=== PATIENT | female | born 1960 | race Caucasian/White ===

== ENCOUNTER 2017-11-23 09:43 | Emergency (ER) | payer MEDICAID ==
[~2017-11-23] VITALS: Ht 160 cm; Wt 73.9 kg
[~2017-11-23 09:43] MED LIST: IBUP-974 PO; TRAM50TA1 PO
[2017-11-23 10:15] VITALS: BP 106/73
--- NOTE | 2017-11-23 10:23 | NUR ---
PATIENT TO [facility] AT THIS TIME.
[2017-11-23 10:37] VITALS: BP 106/73
--- NOTE | 2017-11-23 10:38 | NUR ---
Generalized body ache with flu like symptoms for 3 days. Also reports chronic rt hip pain for many years, surgery in future. Denies fevers/coughs. resp even and unlabored, in nad. DENIES N/V/D; SKIN IS PINK/WARM/DRY; AAOX4 WITH EVEN AND STEADY GAIT; LUNGS CLEAR BL; HR EVEN AND REGULAR; PT DENIES ANY FEVER, CP, SOB, OR COUGH AT THIS TIME; PATIENT STATES PAIN OF 10/10 AT THIS TIME; VSS; ER MD MADE AWARE OF PT STATUS.
== END 2017-11-23 11:46 | disposition left against medical advice (07) ==
LOC: MED 09:43
DX: Z00.00 Encounter for general adult medical examination without abnormal findings (principal); M79.1 Myalgia; Z79.899 Other long term (current) drug therapy
CPT/HCPCS: 99281

== ENCOUNTER 2019-02-17 23:15 | Emergency (ER) | payer MEDICAID ==
[~2019-02-17] VITALS: Ht 160 cm; Wt 74.8 kg
[2019-02-17 23:24] VITALS: BP 149/90
--- NOTE | 2019-02-17 23:24 | NUR ---
Pt taken to bed 5.
--- NOTE | 2019-02-18 00:06 | NUR ---
DR. RAMÍREZ BEDSIDE EVALUATING PT
[2019-02-18] MEDS ORDERED: ONDANSETRON 4 MG ODT PO ONE (00:15)
[2019-02-18] MEDS ORDERED: MORPHINE SULFATE 4 MG/ML SYR IM ONE (00:15)
[2019-02-18 00:48] VITALS: BP 149/90
--- NOTE | 2019-02-18 00:48 | NUR ---
Patient discharged with v/s stable. Written and verbal after care instructions given and explained. Patient alert, oriented and verbalized understanding of instructions. Ambulatory with steady gait. All questions addressed prior to discharge. ID band removed. Patient advised to follow up with PMD. Rx of PREDNISONE, ZOFRAN, NORCO given. Patient educated on indication of medication including possible reaction and side effects. Opportunity to ask questions provided and answered.
== END 2019-02-18 00:48 | disposition home or self-care (01) ==
LOC: MED 23:15
DX: M25.551 Pain in right hip (principal); R05 Cough; R53.83 Other fatigue; R42 Dizziness and giddiness; Z79.899 Other long term (current) drug therapy
CPT/HCPCS: 96372; 99283; J2270; Q0162

== ENCOUNTER 2019-03-10 14:52 | Emergency (ER) | payer MEDICAID ==
[~2019-03-10] VITALS: Ht 160 cm; Wt 77.1 kg
[2019-03-10 15:02] VITALS: BP 146/83
--- NOTE | 2019-03-10 15:52 | NUR ---
C/O HEARTBURN X2 MONTHS. PT REPORTS TAKING ANTACIDS WITH NO RELIEF. PT STATES SHE IS NOW FEELING BLOATED/CONSTIPATED. LBM 03/09/19, PER PT IT WAS "VERY SMALL". BED IN LOW POSITION, SIDE RAIL UP X1, DAUGHTER AT BEDSIDE
[2019-03-10] MEDS ORDERED: DICYCLOMINE HCL LIQUID 20 MG, ALUMINUM HYD/MAG/SIMETHICONE 30 ML, LIDOCAINE VISCOUS 2% ... PO ONE ×3 (15:55)
--- NOTE | 2019-03-10 16:19 | NUR ---
PT RESTING IN BED, NO NEW NEEDS AT THIS TIME. DAUGHTER AT BEDSIDE
[2019-03-10 17:43] VITALS: BP 140/80
--- NOTE | 2019-03-10 17:43 | NUR ---
Patient discharged with v/s stable. Written and verbal after care instructions given and explained. Patient alert, oriented and verbalized understanding of instructions. Ambulatory with steady gait. All questions addressed prior to discharge. ID band removed. Patient advised to follow up with PMD. Rx of miralax, mag citrate, prilosec, diclofenac given. Patient educated on indication of medication including possible reaction and side effects. Opportunity to ask questions provided and answered.
== END 2019-03-10 17:28 | disposition home or self-care (01) ==
LOC: MED 14:52
DX: K21.9 Gastro-esophageal reflux disease without esophagitis (principal); K59.00 Constipation, unspecified; Z79.899 Other long term (current) drug therapy; Z98.890 Other specified postprocedural states
CPT/HCPCS: 99283

== ENCOUNTER 2019-05-29 07:59 | Emergency (ER) | payer MEDICAID ==
[~2019-05-29] VITALS: Ht 160 cm; Wt 73.7 kg
[2019-05-29 08:02] VITALS: BP 139/99
[2019-05-29 09:05] VITALS: BP 139/99
== END 2019-05-29 09:06 | disposition home or self-care (01) ==
LOC: MED 07:59
DX: B02.9 Zoster without complications (principal); F12.90 Cannabis use, unspecified, uncomplicated; Z79.899 Other long term (current) drug therapy; Z98.890 Other specified postprocedural states
CPT/HCPCS: 99283

== ENCOUNTER 2019-06-10 16:09 | Emergency (ER) | payer MEDICAID ==
[~2019-06-10] VITALS: Ht 157.5 cm; Wt 74.4 kg
[2019-06-10 16:16] VITALS: BP 92/56
--- NOTE | 2019-06-10 16:28 | NUR ---
SEEN IN OUR ER 05/29/2019 DX SHINGLES PT CONCERNED SHINGLES MAY NOT BE HEALING---SCABS APPEARING BEHING RIGHT LEG AND RIGHT LATERAL FOOT. INTACT BLISTERS ON RIGHT LATERAL FOOT PRESENT WELL. NO DRAINAGE NOTED FROM SCABBED AREAS. DENIES FEVER, CHILLS, N/V. STATES 10/10 BURNING PAIN. PITTING EDEMA TO BLE NOTED HX---SHINGLES, CHRONIC R HIP PAIN, VERICOSE VEIN, RX----?? WAS GIVEN ZOVIRAX BUT PT HAS BEEN NON COMPLIANT
--- NOTE | 2019-06-10 17:13 | NUR ---
DR. CORLEY EVALUATING PATIENT AT BEDSIDE.
--- NOTE | 2019-06-10 17:32 | NUR ---
DR. CORLEY AT BEDSIDE WITH PATIENT.
[2019-06-10 17:56] VITALS: BP 102/55
--- NOTE | 2019-06-10 17:56 | NUR ---
Patient discharged with v/s stable. Written and verbal after care instructions given and explained. Patient alert, oriented and verbalized understanding of instructions. Ambulatory with steady gait. All questions addressed prior to discharge. ID band removed. Patient advised to follow up with PMD. Rx of KEFLEX, LIDODERM PATCH given. Patient educated on indication of medication including possible reaction and side effects. Opportunity to ask questions provided and answered.
== END 2019-06-10 17:56 | disposition home or self-care (01) ==
LOC: MED 16:09
DX: B02.9 Zoster without complications (principal); L03.115 Cellulitis of right lower limb; L03.317 Cellulitis of buttock; Z79.1 Long term (current) use of non-steroidal anti-inflammatories (NSAID); Z79.891 Long term (current) use of opiate analgesic
CPT/HCPCS: 99283

== ENCOUNTER 2019-06-15 08:06 | Emergency (ER) | payer MEDICAID ==
[~2019-06-15] VITALS: Ht 160 cm; Wt 75.7 kg
[2019-06-15 08:18] VITALS: BP 147/94
[2019-06-15 10:35] VITALS: BP 141/89
== END 2019-06-15 10:35 | disposition home or self-care (01) ==
LOC: MED 08:06
DX: M79.89 Other specified soft tissue disorders (principal); Z79.899 Other long term (current) drug therapy
CPT/HCPCS: 93971; 99284; Q0092

== ENCOUNTER 2019-06-20 11:00 | Emergency (ER) | payer MEDICAID ==
[~2019-06-20] VITALS: Ht 160 cm; Wt 71.2 kg
[2019-06-20 11:11] VITALS: BP 141/69
[2019-06-20 11:56] VITALS: BP 141/69
== END 2019-06-20 11:57 | disposition home or self-care (01) ==
LOC: MED 11:00
DX: B02.9 Zoster without complications (principal); M16.11 Unilateral primary osteoarthritis, right hip; Z79.1 Long term (current) use of non-steroidal anti-inflammatories (NSAID); Z79.899 Other long term (current) drug therapy
CPT/HCPCS: 99281

== ENCOUNTER 2021-01-22 17:33 | Emergency (ER) | payer MEDICAID ==
[~2021-01-22] VITALS: Ht 160 cm; Wt 81.6 kg
[2021-01-22 17:44] VITALS: BP 178/92
--- NOTE | 2021-01-22 19:21 | NUR ---
PT W/C ASSISTED TO BED7.
[2021-01-22 19:27] VITALS: BP 178/92
--- NOTE | 2021-01-22 19:32 | NUR ---
60 Y/O MALE CAME TO THE ED C/O EDEMA AND PAIN IN BILATERAL LOWER LEGS. PT STATES THAT HER FOOT AND CALVES "FEELS SWOLLEN, SORE, TIGHT AND COULDN'T FEEL BOTH LEGS". FOOT AND CALF PAIN OF 8/10. PT IS A&OX4, GCS 15. PT IS NOT ABLE TO AMBULATE WITHOUT HELP OF ASSISTIVE DEVICE. PMH: HTN SURGICAL HX: HIP REPLACEMENT NKA
[2021-01-22] MEDS ORDERED: FUROSEMIDE 40 MG TAB PO ONE (20:20)
--- NOTE | 2021-01-22 20:25 | NUR ---
PT SIGNED AND ACKNOWLEDGED AMA FORM. ERMD AT BEDSIDE EXPLAINING RISKS AND CONSEQUENCES TO PT
--- NOTE | 2021-01-22 20:27 | NUR ---
Patient does not wish to proceed with medical care recommended by DR. MARTIN. Patient given information related to possible complications, up to and including , which could occur as a result of leaving hospital at this time. Patient verbalizes understanding of risks involved leaving against medical advice. Patient has signed AMA form.
[2021-01-23] MEDS ORDERED: POTA20TE92 PO (18:19)
[2021-01-23] MEDS ORDERED: FURO-572 PO (18:19)
[2021-01-23] MEDS ORDERED: ACET-2619 PO (18:23)
== END 2021-01-22 20:27 | disposition left against medical advice (07) ==
LOC: MED 17:33
DX: R60.0 Localized edema (principal); I10 Essential (primary) hypertension; E66.9 Obesity, unspecified; F12.90 Cannabis use, unspecified, uncomplicated; Z68.31 Body mass index [BMI] 31.0-31.9, adult; Z79.899 Other long term (current) drug therapy; Z98.890 Other specified postprocedural states
CPT/HCPCS: 99285

== ENCOUNTER 2021-01-23 14:35 | Emergency (ER) | payer MEDICAID ==
[~2021-01-23] VITALS: Ht 160 cm; Wt 81.6 kg
[2021-01-23 14:53] VITALS: BP 176/90
--- NOTE | 2021-01-23 14:59 | NUR ---
PATIENT AMBULATED TO BED 12
--- NOTE | 2021-01-23 15:10 | NUR ---
60 Y/O FEMALE BIB SELF C/O BILATERAL LEG PAIN & SWELLING X 2 WEEKS. PT HAD RIGHT HIP REPLACEMENT 01/17/21 AND SINCE THEN, PAIN AND SWELLING HAS INCREASED. PT CAME HERE LAST NIGHT AND LEFT AMA BECAUSE SHE DIDNT WANT ALL THE TESTS BUT STATES THAT NOW SHE WANTS THEM. PT RATES PAIN /10 AND DESCRIBES IT PRESSURE/TIGHTNESS. PT AMBULATES WITH WALKER AND STATES PAIN IS WORSE WITH AMBULATION. BILATERAL LEGS HAVE +4 PITTING EDEMA, FULL ROM, WARM TO TOUCH WITH CAP REFILL <3 SECONDS. PT STATES SHE CALLED HER SURGEON AND IS UNABLE TO GET APPT UNTIL 01/29. PT A/O X4 WITH EVEN AND UNLABORED RESPIRATIONS. PT IN BED WITH BED IN LOWEST POSITION, BRAKES LOCKED, X1 SIDERAIL UP. PMH: HTN, VARICOSE VEIN NKA
--- NOTE | 2021-01-23 15:21 | NUR ---
PT RIGHT FOOT ELEVATED WITH PILLOWS PER DR SAID REQUEST
[2021-01-23] MEDS ORDERED: ACETAMINOPHEN EXTRA STRENGTH 500 MG TAB PO ONE (16:25)
--- NOTE | 2021-01-23 16:34 | NUR ---
LAB AT BEDSIDE
--- NOTE | 2021-01-23 16:38 | NUR ---
US AT BEDSIDE
[2021-01-23 16:53] LABS: BASOPHILS % (AUTO) 0.6 % (0.0-2.0); EOSINOPHILS # (AUTO) 0.3 K/uL (0-0.4); EOSINOPHILS % (AUTO) 5.5 % (0.0-4.0); HEMATOCRIT 33.2 % (36-48); HEMOGLOBIN 11.2 g/dL (12.0-16.0); LYMPHOCYTES # (AUTO) 1.1 K/uL (2.5-16.5); LYMPHOCYTES % (AUTO) 22.3 % (20.5-51.1); MEAN CORPUSCULAR HEMOGLOBIN 30 pg (27-31); MEAN CORPUSCULAR HGB CONC 34 g/dL (33-37); MEAN CORPUSCULAR VOLUME 87.2 fL (80-94); MONOCYTES # (AUTO) 0.4 K/uL (0.8-1.0); MONOCYTES % (AUTO) 7.8 % (1.7-9.3); NEUTROPHILS # (AUTO) 3.2 K/uL (1.8-7.7); NEUTROPHILS % (AUTO) 63.8 % (42.2-75.2); PLATELET COUNT (AUTO) 262 K/uL (140-450); RED CELL DISTRIBUTION WIDTH 13.1 % (11.6-13.7)
[2021-01-23 17:07] LABS: PROTHROMBIN TIME 9.9 secs (10.8-13.4)
[2021-01-23 17:11] LABS: ANION GAP 10.2 (8-16); CARBON DIOXIDE 27.6 mmol/L (21-32); CREATININE 0.7 mg/dL (0.6-1.3); TOTAL BILIRUBIN 0.5 mg/dL (0.0-1.0)
--- NOTE | 2021-01-23 17:13 | NUR ---
PT ASSISTED TO RESTROOM WITH USE OF WALKER.
--- NOTE | 2021-01-23 17:19 | NUR ---
PT ASSISTED BACK INTO BED. PT R LEG ELEVATED WITH PILLOWS.
[2021-01-23 17:21] LABS: POTASSIUM 2.8 mmol/L (3.5-5.1)
--- NOTE | 2021-01-23 17:22 | NUR ---
CRITICAL LAB VALUE: POTASSIUM 2.8. DR MURRELL MADE AWARE
[2021-01-23] MEDS ORDERED: POTASSIUM CHLORIDE 10 MEQ TABER PO ONE ×2 (17:35)
[2021-01-23] MEDS ORDERED: POTA20TE92 PO (18:19)
[2021-01-23] MEDS ORDERED: FURO-572 PO (18:19)
[2021-01-23] MEDS ORDERED: ACET-2619 PO (18:23)
--- NOTE | 2021-01-23 18:37 | NUR ---
Patient discharged with v/s stable. Written and verbal after care instructions given and explained. Patient alert, oriented and verbalized understanding of instructions. Ambulatory with steady gait WITH WALKER. All questions addressed prior to discharge. ID band removed. Patient advised to follow up with PMD. Rx of ACETAMINOPHEN, FUROSEMIDE AND POTASSIUM CHLORIDE given. Patient educated on indication of medication including possible reaction and side effects. Opportunity to ask questions provided and answered.
[2021-01-23 18:41] VITALS: BP 176/90
== END 2021-01-23 18:37 | disposition home or self-care (01) ==
LOC: MED 14:35
DX: R60.0 Localized edema (principal); E87.6 Hypokalemia; E11.9 Type 2 diabetes mellitus without complications
CPT/HCPCS: 36415; 80053; 83880; 85025; 85610; 85730; 93970; 99284

== ENCOUNTER 2021-08-27 10:30 | Emergency (ER) | payer MEDICAID ==
[~2021-08-27] VITALS: Ht 160 cm; Wt 80.3 kg
[~2021-08-27 10:30] MED LIST changes: +ACET-2619 PO; +FURO-572 PO; +POTA20TA49 PO
[2021-08-27 10:40] VITALS: BP 151/90
--- NOTE | 2021-08-27 11:08 | NUR ---
REPORT RECEIVED FROM [facility] FOR TRANSFER OF CARE
[2021-08-27] MEDS ORDERED: cephALEXin 500 MG CAP PO ONE (11:15)
[2021-08-27] MEDS ORDERED: SULFAMETH/TRIMETH DS 800/160MG 1 TAB PO ONE (11:15)
[2021-08-27] MEDS ORDERED: ACET-9527 PO (11:40)
[2021-08-27] MEDS ORDERED: SIME180C9 PO (11:40)
[2021-08-27] MEDS ORDERED: CEPH500C16 PO (11:40)
[2021-08-27] MEDS ORDERED: SULF-59 PO (11:40)
--- NOTE | 2021-08-27 11:44 | NUR ---
61yo f c/o abscess and pain on left lower leg x last night. pt reports abscess, redness and "breaking open" of skin where shingles blisters have erupted and healed 8months ago. took motrin 800mg last night. redness and edema noted on L calf region. Pt stated pain is currently 5/10 and burning like pain. pmh: htn, chronic hip pain meds: unrecalled med for htn, motrin 800mg nkda
[2021-08-27 11:51] VITALS: BP 151/90
--- NOTE | 2021-08-27 11:52 | NUR ---
Patient discharged with v/s stable. Written and verbal after care instructions given and explained. Patient alert, oriented and verbalized understanding of instructions. Ambulatory with steady gait. All questions addressed prior to discharge. ID band removed. Patient advised to follow up with PMD. Rx of NORCO, KEFLEX, SIMETHICONE, AND BACTRIM given. Patient educated on indication of medication including possible reaction and side effects. Opportunity to ask questions provided and answered.
== END 2021-08-27 11:52 | disposition home or self-care (01) ==
LOC: MED 10:30
DX: L03.116 Cellulitis of left lower limb (principal); M25.559 Pain in unspecified hip; G89.29 Other chronic pain; Z79.899 Other long term (current) drug therapy; Z79.891 Long term (current) use of opiate analgesic; Z79.2 Long term (current) use of antibiotics; Z79.1 Long term (current) use of non-steroidal anti-inflammatories (NSAID)
CPT/HCPCS: 99283

== ENCOUNTER 2023-05-27 16:54 | Emergency (ER) | payer MEDICAID ==
[~2023-05-27] VITALS: Ht 160 cm; Wt 72.6 kg
[~2023-05-27 16:54] MED LIST changes: +ACET-9527 PO; +CEPH500C16 PO; +SIME180C9 PO; +SULF-59 PO; -TRAM50TA1 PO
[2023-05-27 17:22] VITALS: BP 147/105; PULSE 88; RESP 20; TEMP 97.7; O2SAT 95
[2023-05-27 18:00] LABS: BASOPHILS % (AUTO) 0.5 % (0.0-2.0); EOSINOPHILS # (AUTO) 0.2 K/uL (0-0.4); EOSINOPHILS % (AUTO) 3.2 % (0.0-4.0); HEMATOCRIT 40.6 % (36-48); HEMOGLOBIN 13.7 g/dL (12.0-16.0); LYMPHOCYTES % (AUTO) 19.2 % (20.5-51.1); MEAN CORPUSCULAR HEMOGLOBIN 31 pg (27-31); MEAN CORPUSCULAR HGB CONC 34 g/dL (33-37); MEAN CORPUSCULAR VOLUME 90.7 fL (80-94); MONOCYTES # (AUTO) 0.5 K/uL (0.8-1.0); MONOCYTES % (AUTO) 9.6 % (1.7-9.3); NEUTROPHILS # (AUTO) 3.6 K/uL (1.8-7.7); NEUTROPHILS % (AUTO) 67.5 % (42.2-75.2); PLATELET COUNT (AUTO) 261 K/uL (140-450); RED BLOOD CELL COUNT(AUTO) 4.48 MIL/uL (4.20-5.40); RED CELL DISTRIBUTION WIDTH 14.2 % (11.6-13.7); WHITE BLOOD COUNT (AUTO) 5.3 K/uL (4.8-10.8)
[2023-05-27 18:22] LABS: ALBUMIN 3.2 g/dL (3.4-5.0); ANION GAP 9.9 (8-16); CALCIUM 8.6 mg/dL (8.5-10.1); CARBON DIOXIDE 29.1 mmol/L (21-32); CREATININE 1.1 mg/dL (0.6-1.3); TOTAL BILIRUBIN 0.5 mg/dL (0.0-1.0)
[2023-05-27] MEDS ORDERED: BACI-105 TP (18:51)
[2023-05-27] MEDS ORDERED: SULF-59 PO (18:51)
[2023-05-27] MEDS ORDERED: CEPH-588 PO (18:51)
[2023-05-27 19:01] VITALS: O2SAT 95
[2023-05-27 19:18] VITALS: BP 148/94; PULSE 90; RESP 17; TEMP 97.7; O2SAT 100
== END 2023-05-27 19:18 | disposition home or self-care (01) ==
LOC: MED 16:54
DX: L03.116 Cellulitis of left lower limb (principal); I83.92 Asymptomatic varicose veins of left lower extremity; E87.6 Hypokalemia; I10 Essential (primary) hypertension; Z79.899 Other long term (current) drug therapy; Z98.890 Other specified postprocedural states
CPT/HCPCS: 36415; 73590; 80053; 85025; 87040; 93971; 99285

== ENCOUNTER 2023-06-08 12:59 | Emergency (ER) | payer MEDICAID ==
[~2023-06-08] VITALS: Ht 160 cm; Wt 72.3 kg
[~2023-06-08 12:59] MED LIST changes: +BACI-105 TP; +CEPH-588 PO
[2023-06-08 13:27] VITALS: BP 166/98; PULSE 92; RESP 20; TEMP 97.6; O2SAT 96
[2023-06-08] MEDS ORDERED: BACITRACIN OINT 500 UNITS/GM PKT TP ONE ×2 (14:45)
[2023-06-08 14:55] VITALS: O2SAT 98
[2023-06-08] MEDS ORDERED: DOXY-690 PO (14:57)
[2023-06-08] MEDS ORDERED: CEPH-588 PO (14:57)
[2023-06-08] MEDS ORDERED: BACI-418 TP (14:57)
[2023-06-08 15:07] VITALS: BP 166/98; PULSE 68; RESP 20; TEMP 97.6; O2SAT 92
== END 2023-06-08 15:09 | disposition home or self-care (01) ==
LOC: MED 12:59
DX: L03.116 Cellulitis of left lower limb (principal); I10 Essential (primary) hypertension; Z79.899 Other long term (current) drug therapy
CPT/HCPCS: 87070; 87075; 87205; 99283